=== PATIENT | male | born 1980 | race Caucasian/White ===

== ENCOUNTER 2016-11-01 12:58 | Emergency (ER) | payer OTHER ==
[~2016-11-01] VITALS: Ht 175.3 cm; Wt 70.3 kg
[2016-11-01 12:59] VITALS: BP 125/89
[2016-11-01] MEDS ORDERED: FLEXERIL PO (13:45)
== END 2016-11-01 14:02 | disposition home or self-care (01) ==
LOC: ER 12:58
DX: M54.5 Low back pain (principal); Z98.890 Other specified postprocedural states; F17.290 Nicotine dependence, other tobacco product, uncomplicated; V89.2XXA Person injured in unspecified motor-vehicle accident, traffic, initial encounter; Y93.89 Activity, other specified; Y92.89 Other specified places as the place of occurrence of the external cause; Y99.8 Other external cause status